=== PATIENT | male | born 1960 | race Caucasian/White ===

== ENCOUNTER 2018-07-23 09:56 | Outpatient (CLI) | payer MEDICARE, MEDICAID | END 2018-07-23 23:59 | disposition home or self-care (01) | LOC: RAD 09:56 | PROVIDERS: ATTEND Psychiatry & Neurology Neurology | DX: R13.10 Dysphagia, unspecified (principal) | CPT/HCPCS: 74230 ==

== ENCOUNTER 2018-07-27 10:17 | Day surgery (SDC) | payer MEDICARE, MEDICAID ==
[~2018-07-27] VITALS: Ht 170.2 cm; Wt 62.7 kg
[2018-07-27] MEDS ORDERED: LACTATED RINGERS 1,000 ML IV SCH (11:41)
[2018-07-27] MEDS ORDERED: SUMA50TA3 PO (11:44)
[2018-07-27] MEDS ORDERED: ZOLP10TA PO (11:44)
[2018-07-27 11:46] VITALS: BP 151/101
[2018-07-27] MEDS ORDERED: MIDAZOLAM 1 MG/ML, 2ML ONE (12:43)
== END 2018-07-27 14:30 | disposition home or self-care (01) ==
LOC: OUT 10:17
PROVIDERS: ATTEND Internal Medicine
DX: K21.0 Gastro-esophageal reflux disease with esophagitis (principal); R13.10 Dysphagia, unspecified
CPT/HCPCS: 43239; 43245; 88305; J2250; J7120